=== PATIENT | female | born 1945 | race Caucasian/White ===

== ENCOUNTER → 2018-05-25 | Outpatient (CLI) | payer MEDICARE, OTHER ==
[~2018-05-25] MED LIST: ASPI-1471 PO; ASPI-870 PO; CA C1TAB85 PO; CYAN100017 PO; EPIN0.3P15 IM; FLU45SYR17 IM; FLU45SYR25 IM ONLY; METAMUCIL POWD283 GM PO; METF500T4 PO; OMEP-125 PO; PNEU0.5D3 IM; RABE20TA33 PO; RANI-366 PO; ROSU20TA5 PO
--- NOTE | 2018-05-29 09:34 | RADIOLOGY IMAGING REPORT ---
FACILITY: [facility] PATIENT NAME: MAKAYLA ANN : [id number] MR: [id number] V: [id number] EXAM DATE: [id number] ORDERING PHYSICIAN: WILLARD RAMOS TECHNOLOGIST: Teri Canales PROCEDURE:BILATERAL DIGITAL SCREENING MAMMOGRAM WITH CAD ASSISTED INTERPRETATION & 3D TOMOSYNTHESIS COMPARISON:Prior mammograms 04/29/16, 11/27/14, 11/26/14, 01/16/13. INDICATIONS:Screening FINDINGS: Small amount of fibroglandular tissue is seen throughout the breasts. The parenchymal pattern has remained stable allowing for difference in mammographic technique & patient positioning. There is no evidence of malignant appearing mass, malignant appearing calcifications or other secondary sign of malignancy in either breast. DIAGNOSTIC CATEGORY 1--NEGATIVE. RECOMMENDATIONS: ROUTINE MAMMOGRAM AND CLINICAL EVALUATION. IMPRESSION: BIRADS 1: Negative. No significant abnormality is seen. Dictated by: Odette Monteiro M.D. on 05/25/2018 at 15:37 Transcribed by: NATASHA on 05/25/2018 at 15:47 Approved by: Odette Monteiro M.D. on 05/29/2018 at 9:33 [facility]
== END ==
LOC: MAMO 02:17
PROVIDERS: ATTEND Emergency Medicine
DX: Z12.31 Encounter for screening mammogram for malignant neoplasm of breast (principal)
CPT/HCPCS: 77063; 77067

== ENCOUNTER 2018-06-03 17:44 | Emergency (ER) | payer MEDICARE, OTHER ==
--- NOTE | 2018-06-03 17:52 | ER Report ---
History and Physical Time Seen By MD: 17:52 Hx. of Stated Complaint: SUDDEN ONSET OF DIZZINESS THAT RESULTED IN FALL. DIZZINESS REMAINS. HPI/ROS CHIEF COMPLAINT: Dizziness with fall HISTORY OF PRESENT ILLNESS: 72-year-old female patient presents to emergency room with complaint of being dizzy. Patient states that she was walking to the car with her grandchildren when checking dizzy. States it felt as if she was intoxicated although she had not had anything to drink. She did fall striking the back of her head. Patient states that she did not lose consciousness. She denies any nausea, vomiting. Patient states she does still feel dizzy although it has improved considerably. Patient states this has not happened previously. She has not taken any medication for this. Patient states she has had some episodes of positional vertigo but nothing like this. REVIEW OF SYSTEMS: Respiratory: No cough, no dyspnea. Cardiovascular: No chest pain, no palpitations. Gastrointestinal: No vomiting, no abdominal pain. Musculoskeletal: No back pain. Allergies: Coded Allergies: Sulfa (Sulfonamide Antibiotics) (Verified Allergy, Mild, HEADACHE CHILD , 06/03/18) BEE STINGS (Verified Allergy, Unknown, 06/03/18) Home Meds Active Scripts Meclizine Hcl (MECLIZINE HCL) 25 Mg Tablet, 25 MG PO Q6H Y for DIZZINESS, #30 TAB Prov:NASRIN PERDOMO 06/03/18 Amoxicillin/Pot Clav 875-125 Mg Tab (AUGMENTIN 875-125 TABLET) 1 Each Tablet, 1 TAB PO Q12H, #18 TAB Prov:NASRIN PERDOMO 06/03/18 Scopolamine (Scopolamine) 1 Mg/3 Day Patch.td.3, 1 PATCH TD Q3D Y for DIZZINESS , #2 PATCH.72H Prov:NASRIN PERDOMO 06/03/18 Ranitidine Hcl (ZANTAC) 150 Mg Tablet, 150 MG PO BID, #180 TAB 4 Refills Prov:WILLARD RAMOS MD 07/14/17 Cyanocobalamin (Vitamin B-12) (B-12) 1,000 Mcg Tablet, 2 TAB PO DAILY, #0 TAB Prov:WILLARD RAMOS MD 01/11/17 Reported Medications Aspirin (ASPIR 81) 81 Mg Tablet.dr, 81 MG PO QDAY, TAB 07/14/17 Ca Cmb No.1/Vit D3/B-6/Fa/B12 (VITAMIN D3 1,000 UNIT TABLET) 1 Each Tablet, 1 EACH PO QDAY 06/20/14 Discontinued Scripts Epinephrine (EPIPEN 2-MERVAT) 0.3 Mg/0.3 Ml Pen.injctr, 0.3 MG IM PRN, #1 UNIT 1 Refill Prov:TAVO CARIAS MD 06/25/14 Past Medical/Surgical History Patient has a past medical history of subdural hematoma, reflux, frequent UTI, arthritis. Patient has a surgical history of tubal ligation. Reviewed Nurses Notes: Yes Smoking Status: Never Smoker Constitutional Vital Sign - Last 24 Hours 06/03/18 17:49 Temp 98.4 Pulse 60 Resp 18 B/P (MAP) 140/81 Pulse Ox 96 O2 Delivery Room Air Physical Exam General Appearance: The patient is alert, has no immediate need for airway protection and no current signs of toxicity. Eyes: Pupils equal and round no injection. Patient does have nystagmus with leftward gaze. Patient had a negative [place]-Hallpike maneuver. Respiratory: Chest is non tender, lungs are clear to auscultation. Cardiac: regular rate and rhythm Gastrointestinal: Abdomen is soft and non tender, no masses, bowel sounds normal. Musculoskeletal: Neck: Neck is supple and non tender. Extremities have full range of motion and are non tender. Skin: No rashes or lesions. DIFFERENTIAL DIAGNOSIS: After history and physical exam differential diagnosis was considered for dizziness including but not limited to peripheral and central causes of vertigo, orthostatic causes including dehydration, and blood loss. Medical Decision Making Data Points Result Diagram: 06/03/18 1753 06/03/18 1753 Laboratory Hematology Test 06/03/18 17:53 06/03/18 18:00 Red Blood Count 5.08 M/uL (4.17-5.56) Mean Corpuscular Volume 83.8 fL (80.0-96.0) Mean Corpuscular Hemoglobin 28.7 pg (26.0-33.0) Mean Corpuscular Hemoglobin Concent 34.3 g/dL (32.0-36.0) Red Cell Distribution Width 14.7 % (11.5-14.5) Mean Platelet Volume 9.3 fL (7.2-11.1) Neutrophils (%) (Auto) 55.7 % (39.4-72.5) Lymphocytes (%) (Auto) 33.1 % (17.6-49.6) Monocytes (%) (Auto) 8.4 % (4.1-12.4) Eosinophils (%) (Auto) 1.9 % (0.4-6.7) Basophils (%) (Auto) 0.9 % (0.3-1.4) Nucleated RBC Relative Count (auto) 0.0 /100WBC Neutrophils # (Auto) 4.7 K/uL (2.0-7.4) Lymphocytes # (Auto) 2.8 K/uL (1.3-3.6) Monocytes # (Auto) 0.7 K/uL (0.3-1.0) Eosinophils # (Auto) 0.2 K/uL (0.0-0.5) Basophils # (Auto) 0.1 K/uL (0.0-0.1) Nucleated RBC Absolute Count (auto) 0.00 K/uL Sodium Level 140 mmol/L (137-145) Potassium Level 3.8 mmol/L (3.5-5.0) Chloride Level 105 mmol/L (98-107) Carbon Dioxide Level 23 mmol/L (22-31) Blood Urea Nitrogen 19 mg/dl (7-18) Creatinine 1.10 mg/dl (0.52-1.04) Glomerular Filtration Rate Calc 48.8 Random Glucose 104 mg/dl (75-110) Calcium Level 9.8 mg/dl (8.4-10.2) Total Bilirubin 0.4 mg/dl (0.2-1.3) Aspartate Amino Transf (AST/SGOT) 18 U/L (0-35) Alanine Aminotransferase (ALT/SGPT) 21 U/L (0-56) Alkaline Phosphatase 93 U/L (0-126) Troponin I < 0.012 ng/ml Total Protein 7.5 g/dl (6.3-8.2) Albumin 4.5 g/dl (3.5-5.0) Urine Color Yellow Urine Clarity Clear Urine pH 5.0 pH (4.8-9.5) Urine Specific [place] 1.012 Urine Protein Negative mg/dL (NEGATIVE) Urine Glucose (UA) Negative mg/dL (NEGATIVE) Urine Ketones Negative mg/dL (NEGATIVE) Urine Blood Negative (NEGATIVE) Urine Nitrite Negative (NEGATIVE) Urine Bilirubin Negative (NEGATIVE) Urine Urobilinogen Negative mg/dL (0.2-1.9) Urine Leukocyte Esterase Negative (NEGATIVE) Urine RBC 1 /HPF (0-2/HPF) Urine WBC <1 /HPF (0-5/HPF) Urine Squamous Epithelial Cells Many /LPF (</=FEW) Urine Bacteria Few /HPF (NONE-FEW) Urine Mucus None /HPF (NONE-FEW) Chemistry Test 06/03/18 17:53 06/03/18 18:00 White Blood Count 8.5 k/uL (4.5-11.0) Red Blood Count 5.08 M/uL (4.17-5.56) Hemoglobin 14.6 g/dL (12.0-16.0) Hematocrit 42.6 % (34.0-47.0) Mean Corpuscular Volume 83.8 fL (80.0-96.0) Mean Corpuscular Hemoglobin 28.7 pg (26.0-33.0) Mean Corpuscular Hemoglobin Concent 34.3 g/dL (32.0-36.0) Red Cell Distribution Width 14.7 % (11.5-14.5) Platelet Count 302 K/uL (150-450) Mean Platelet Volume 9.3 fL (7.2-11.1) Neutrophils (%) (Auto) 55.7 % (39.4-72.5) Lymphocytes (%) (Auto) 33.1 % (17.6-49.6) Monocytes (%) (Auto) 8.4 % (4.1-12.4) Eosinophils (%) (Auto) 1.9 % (0.4-6.7) Basophils (%) (Auto) 0.9 % (0.3-1.4) Nucleated RBC Relative Count (auto) 0.0 /100WBC Neutrophils # (Auto) 4.7 K/uL (2.0-7.4) Lymphocytes # (Auto) 2.8 K/uL (1.3-3.6) Monocytes # (Auto) 0.7 K/uL (0.3-1.0) Eosinophils # (Auto) 0.2 K/uL (0.0-0.5) Basophils # (Auto) 0.1 K/uL (0.0-0.1) Nucleated RBC Absolute Count (auto) 0.00 K/uL Glomerular Filtration Rate Calc 48.8 Calcium Level 9.8 mg/dl (8.4-10.2) Total Bilirubin 0.4 mg/dl (0.2-1.3) Aspartate Amino Transf (AST/SGOT) 18 U/L (0-35) Alanine Aminotransferase (ALT/SGPT) 21 U/L (0-56) Alkaline Phosphatase 93 U/L (0-126) Troponin I < 0.012 ng/ml Total Protein 7.5 g/dl (6.3-8.2) Albumin 4.5 g/dl (3.5-5.0) Urine Color Yellow Urine Clarity Clear Urine pH 5.0 pH (4.8-9.5) Urine Specific [place] 1.012 Urine Protein Negative mg/dL (NEGATIVE) Urine Glucose (UA) Negative mg/dL (NEGATIVE) Urine Ketones Negative mg/dL (NEGATIVE) Urine Blood Negative (NEGATIVE) Urine Nitrite Negative (NEGATIVE) Urine Bilirubin Negative (NEGATIVE) Urine Urobilinogen Negative mg/dL (0.2-1.9) Urine Leukocyte Esterase Negative (NEGATIVE) Urine RBC 1 /HPF (0-2/HPF) Urine WBC <1 /HPF (0-5/HPF) Urine Squamous Epithelial Cells Many /LPF (</=FEW) Urine Bacteria Few /HPF (NONE-FEW) Urine Mucus None /HPF (NONE-FEW) Urinalysis Test 06/03/18 18:00 Urine Color Yellow Urine Clarity Clear Urine pH 5.0 pH (4.8-9.5) Urine Specific [place] 1.012 Urine Protein Negative mg/dL (NEGATIVE) Urine Glucose (UA) Negative mg/dL (NEGATIVE) Urine Ketones Negative mg/dL (NEGATIVE) Urine Blood Negative (NEGATIVE) Urine Nitrite Negative (NEGATIVE) Urine Bilirubin Negative (NEGATIVE) Urine Urobilinogen Negative mg/dL (0.2-1.9) Urine Leukocyte Esterase Negative (NEGATIVE) Urine RBC 1 /HPF (0-2/HPF) Urine WBC <1 /HPF (0-5/HPF) Urine Squamous Epithelial Cells Many /LPF (</=FEW) Urine Bacteria Few /HPF (NONE-FEW) Urine Mucus None /HPF (NONE-FEW) EKG/Imaging EKG Interpretation 12 lead EKG: Rhythm: Sinus bradycardia with ventricular rate of 59 bpm [place]: normal QRS: normal ST segments: Inverted T waves in V1, V3 and flattened T waves in V2. Imaging HEAD W/O CONTRAST HISTORY: dizziness TECHNIQUE: CT head without contrast. One of the following dose optimization techniques was utilized in the performance of this exam: Automated exposure control; adjustment of the mA and/ or kV according to the patient's size; or use of an iterative reconstruction technique. Specific details can be referenced in the facility's radiology CT exam operational policy. COMPARISON: None. FINDINGS: Mild generalized atrophy consistent with age. No evidence of acute cortical infarct, intracranial hemorrhage, mass, mass effect, hydrocephalus or extra- axial collection. Visualized aspects paranasal sinuses and mastoid air cells well pneumatized and clear aside from mucosal thickening and several small mucous retention cysts within the floor right maxillary sinus. Mild hyperostosis frontalis interna. IMPRESSION: 1. No evidence of an acute intracranial process. 2. Right maxillary sinusitis. Report Dictated By: Taran Leung MD at 06/03/2018 6:55 PM Report E-Signed By: Taran Leung MD at 06/03/2018 6:58 PM ED Course/Re-evaluation ED Course Patient was admitted to an exam room, history and physical were obtained. Differential diagnoses were considered. On examination patient did have some nystagmus with a leftward gaze, patient had a negative [place]-Hallpike. A CBC, CMP , EKG, troponin, CT scan of the head were done. Lab results were unremarkable, CT scan showed no acute findings in the brain, however did show a right sinusitis. I discussed the findings with the patient and her family. We'll go ahead and treat her sinus infection with Augmentin. We'll have her follow-up with her primary care provider. We'll also treat the dizziness with scopolamine patch and meclizine as needed. She is return to the emergency room if condition worsens. I believe the underlying cause of her dizziness is likely the sinusitis and believe that treatment will result this. Patient did have significant improvement of her dizziness throughout the course of her stay in the emergency room. Patient verbalized understanding and agreement with plan. Decision to Disposition Date: Jun 03, 2018 Decision to Disposition Time: 19:25 Depart Departure Latest Vital Signs Vital Signs Date Time Temp Pulse Resp B/P (MAP) Pulse Ox O2 Delivery O2 Flow Rate FiO2 06/03/18 17:49 98.4 60 18 140/81 96 Room Air Impression: Primary Impression: Vertigo Additional Impression: Sinusitis Condition: Improved Referrals: WILLARD RAMOS MD (PCP) New Scripts Meclizine Hcl (MECLIZINE HCL) 25 Mg Tablet 25 MG PO Q6H Y for DIZZINESS, #30 TAB Prov: NASRIN PERDOMO 06/03/18 Amoxicillin/Pot Clav 875-125 Mg Tab (AUGMENTIN 875-125 TABLET) 1 Each Tablet 1 TAB PO Q12H, #18 TAB Prov: NASRIN PERDOMO 06/03/18 Scopolamine (Scopolamine) 1 Mg/3 Day Patch.td.3 1 PATCH TD Q3D Y for DIZZINESS, #2 PATCH.72H Prov: NASRIN PERDOMO 06/03/18 Patient Instructions: Vertigo (ED) Additional Instructions: Increase fluid intake. Get plenty of rest. Follow up with your primary care provider in the next week. Return to the ER if condition worsens. Take the antibiotics as directed. Problem Qualifiers Additional Impression: Sinusitis Sinusitis location: maxillary Chronicity: acute Recurrence: non-recurrent Qualified Codes: J01.00 - Acute maxillary sinusitis, unspecified NASRIN PERDOMO Jun 03, 2018 17:52
[2018-06-03] MEDS ORDERED: NS(*) 0.9% 1000 ML BAG 1,000 ML IV ONE (17:53)
[2018-06-03 17:59] LABS: PLATELET COUNT, AUTOMATED 302 K/uL (150-450)
--- NOTE | 2018-06-03 18:16 | EKG ---
FACILITY: [facility] - [place], [place] PATIENT NAME: MAKAYLA ANN : [id number] MR: [id number] V: [id number] EXAM DATE: ORDERING PHYSICIAN: NASRIN PERDOMO TECHNOLOGIST: LY Test Reason : FALL Blood Pressure : / mmHG Vent. Rate : 059 BPM Atrial Rate : 059 BPM P-R Int : 162 ms QRS Dur : 092 ms QT Int : 448 ms P-R-T Axes : 054 -17 036 degrees QTc Int : 443 ms Sinus bradycardia Abnormal ECG No previous ECGs available Confirmed by Valdez Man ([id number]) on 06/03/2018 6:32:00 PM Referred By: LEANNE Confirmed By:Valdez Morales
--- NOTE | 2018-06-03 19:01 | RADIOLOGY IMAGING REPORT ---
FACILITY: [facility] - [place] PATIENT NAME: Liv Brandon : 1945 MR: [id number] V: [id number] EXAM DATE: ORDERING PHYSICIAN: NASRIN PERDOMO TECHNOLOGIST: Location: [facility] - [place] Patient: Liv Brandon : 1945 Visit/Account:[id number] Date of Sevice: 06/03/2018 HEAD W/O CONTRAST HISTORY: dizziness TECHNIQUE: CT head without contrast. One of the following dose optimization techniques was utilized in the performance of this exam: Autom ated exposure control; adjustment of the mA and/or kV according to the patient's size; or use of an i terative reconstruction technique. Specific details can be referenced in the facility's radiology C T exam operational policy. COMPARISON: None. FINDINGS: Mild generalized atrophy consistent with age. No evidence of acute cortical infarct, intracranial hem orrhage, mass, mass effect, hydrocephalus or extra-axial collection. Visualized aspects paranasal sinuses and mastoid air cells well pneumatized and clear aside from muco teressa thickening and several small mucous retention cysts within the floor right maxillary sinus. Mild hyperostosis frontalis interna. IMPRESSION: 1. No evidence of an acute intracranial process. 2. Right maxillary sinusitis. Report Dictated By: Taran Leung MD at 06/03/2018 6:55 PM Report E-Signed By: Taran Leung MD at 06/03/2018 6:58 PM WSN:[id number]
[2018-06-03] MEDS ORDERED: SCOPOLAMINE 1.5 MG PATCH TD ONE (19:25)
[2018-06-03] MEDS ORDERED: MECLIZINE HCL 12.5 MG TAB TH PO ONE (19:25)
[2018-06-03] MEDS ORDERED: AMOX/CLAV 875 MG TAB PO ONE (19:25)
[2018-06-03] MEDS ORDERED: AMOX-559 PO (19:27)
[2018-06-03] MEDS ORDERED: SCOP1PAT16 TD (19:27)
[2018-06-03] MEDS ORDERED: MECL25TA9 PO (19:27)
[2018-06-03 19:30] VITALS: BP 140/71
== END 2018-06-03 19:40 | disposition home or self-care (01) ==
LOC: ER 18:18
DX: J01.00 Acute maxillary sinusitis, unspecified (principal); R42 Dizziness and giddiness; K21.9 Gastro-esophageal reflux disease without esophagitis; M19.90 Unspecified osteoarthritis, unspecified site; W18.30XA Fall on same level, unspecified, initial encounter; Z87.440 Personal history of urinary (tract) infections; Z79.82 Long term (current) use of aspirin; Z79.899 Other long term (current) drug therapy
CPT/HCPCS: 70450; 81001; 84484; 85025; 93005; 96360; 99284; A9270; J7030; 82040; 82247; 82310; 82374; 82435; 82565; 82947; 84075; 84132; 84155; 84295; 84450; 84460; 84520

== ENCOUNTER → 2018-07-19 | Outpatient (CLI) | payer MEDICARE, OTHER ==
[~2018-07-19] MED LIST changes: +AMOX-559 PO; +DIPH0.5D12 IM; +FLU180SY11 IM; +MECL25TA9 PO; +PRAV40TA78 PO; +SCOP1PAT16 TD
== END ==
LOC: AUD 13:00
PROVIDERS: ATTEND Emergency Medicine
DX: H90.3 Sensorineural hearing loss, bilateral (principal)
CPT/HCPCS: 92557; 92570

== ENCOUNTER → 2018-07-20 | Outpatient (CLI) | payer MEDICARE, OTHER ==
--- NOTE | 2018-07-20 14:41 | RADIOLOGY IMAGING REPORT ---
FACILITY: [facility] - [place] PATIENT NAME: Liv Brandon : 1945 MR: [id number] V: [id number] EXAM DATE: ORDERING PHYSICIAN: WILLARD RAMOS TECHNOLOGIST: Location: [facility] Patient: Liv Brandon : 1945 Visit/Account:[id number] Date of Sevice: 07/20/2018 Exam type: ARTERIAL BILAT LOWER EXT History: Decreased pedal pulses Comparison: None. Findings: Right lower extremity: There is triphasic flow seen throughout the vessels of the right lower extremity The peak systolic velocities in the arteries of the right lower extremity in centimeters per second a re as follows: [employer] 117 Profunda femoral artery 67.7 SFA proximal 104 SFA mid 83.2 SFA distal 68.6 Popliteal proximal 54.4 Popliteal distal 80.9 Peroneal 54.4 Posterior tibial proximal 73.4 Posterior tibial mid 83.6 Posterior tibial distal 82.2 Anterior tibial 55 Dorsalis pedis 53.2 Left lower extremity: There is triphasic flow seen throughout the vessels of the left lower extremity. The peak systolic velocities in the arteries of left lower extremity in centimeters per second are as follows: [employer] SALES [employer]GER 108 [place] femoral artery 62.6 SFA proximal 111 SFA mid 118 SFA distal 75.5 Popliteal proximal 51.6 Popliteal distal 102 Peroneal 87.1 Posterior tibial proximal 105 Posterior tibial mid 89.2 Posterior tibial distal 102 Anterior tibial 61.8 Dorsalis pedis 34.3 There is a 2.8 x 2 x 0.8 cm fluid collection in the left popliteal fossa likely a popliteal cyst IMPRESSION: Triphasic flow seen throughout the lower extremity arterial tree bilaterally with no hemodynamically significant lesions identified Impression small left popliteal cyst IMPRESSION: 1. Report Dictated By: Odette Monteiro MD at 07/20/2018 2:32 PM Report E-Signed By: Odette Monteiro MD at 07/20/2018 2:37 PM WSN:[email or web address]
== END ==
LOC: US 00:34
PROVIDERS: ATTEND Emergency Medicine
DX: M71.22 Synovial cyst of popliteal space [Baker], left knee (principal)
CPT/HCPCS: 93925

== ENCOUNTER → 2019-01-22 | Outpatient (CLI) | payer MEDICARE, OTHER | LOC: LAB 08:23 | PROVIDERS: ATTEND Emergency Medicine | DX: E11.9 Type 2 diabetes mellitus without complications (principal) | CPT/HCPCS: 36415; 83036 ==